=== PATIENT | female | born 1940 | race Caucasian/White ===

== ENCOUNTER 2025-03-04 12:53 | Inpatient (IN) | payer MEDICARE, OTHER, SELFPAY ==
[2025-03-04] VITALS (13 sets, daily range): BP systolic 98–131; BP diastolic 53–82; BMI 22.5; BMI 22.8
--- NOTE | 2025-03-04 09:55 | W.ICD.CONTRA ---
Post ICD/KETTLEMAN-D
-
History of GA?: No
LV Function
Left ventricular function study result?: Ejection Fraction </= 35%
ACEI/ARB/ARNI
Patient already on ACEI/ARB/ARNI: Yes
Beta-Yadira
Patient already on Beta Yadira: Yes
[2025-03-04] MEDS: VANCOCIN 200 IV (13:02)
--- NOTE | 2025-03-04 13:59 | ITS.CL.ICD ---
Natural Developer - ICD
Implantable Cardioverter Defibrillator
Procedure Report:
Primary Physician: Mariam Siegel MD
Primary Police Surgeon: Sohan Hernandez MD
Procedure Date: 03/04/2025
Procedure:
1: Implantation of TECHNICAL ASSISTANT-D utilizing LBBAP pacing lead for conduction system pacing
2: Subclavian venography
Indication/Diagnosis:
1. LBBB with baseline QRS > 120 msec (QRS >150 on ECG at procedure start)
2. CHF - NYHA class II-III
3. LVEF < 35% despite maximally tolerated GDMT > 90 days
HISTORY: Please see office H&P.
After informed consent was obtained, the patient was brought to the EP laboratory in a postabsorptive, nonsedated state. Peripheral IV access was established. Prophylactic antibiotics were administered prior to incision. Continuous ECG, blood
pressure, and pulse oximetry were initiated. Cardioversion patch electrodes were placed on the patient's chest and back. A grounding patch was applied to the skin. Sedation was administered by anesthesia.
In order to define the extrathoracic portion of the subclavian vein and exclude significant venous obstruction or anomalous anatomy, subclavian venography was performed prior to the procedure. Using the patient's left peripheral IV, contrast was
injected and images were recorded. The left subclavian vein and SVC were found to be widely patent.
The left chest was prepared and draped in a sterile fashion. A 'time out' was called and confirmed. Local anesthesia was injected in the subcutaneous tissue in the infraclavicular area. An incision was made medial to the deltopectoral groove and
parallel to the clavicle. The subcutaneous tissue was dissected the level of the prepectoral fascia. A subcutaneous pocket was created. Under fluoroscopic guidance and with the assistance of the images from the venogram, three separate
venipunctures were made using micropuncture and modified Seldinger technique. These was performed in the extrathoracic portion of the subclavian vein. Guidewires were passed. Peel-away sheaths were placed, and were used to advance the leads into
the circulation.
Using fluoroscopic guidance, the leads were positioned. The RV lead was advanced to the RV outflow tract. Ventricular ectopy was recorded. Images were taken in STERLING and RUSSIAN views to ensure appropriate lead placement. The lead tip was subsequently
positioned in the RV apex. Adequate sensing and pacing parameters were found, and no diaphragmatic stimulation was seen with high-output pacing.
Fluoroscopy was used to determine likely anatomic site for left bundle branch pacing. The GEOCOMtmstronic C315 sheath was used to deliver the Medtronic 3830 Selectsecure pacing lead with the helix exposed just exposed from the sheath tip during continuous
monitoring when pacemapping the septum during gentle clockwise rotation to obtain a paced QRS morphology of a W pattern in lead V1. Once the suspected optimal site was identified, lead deployment was performed with several rapid rotations as paced
QRS morphology was intermittently monitored until a paced QRS complex in lead V1 demonstrated development of an R wave (qR or rSR). Unipolar pacing impedance dropped by approximately 100-200 ohms suggesting it had reached the left ventricular
subendocardial. Stable VEgm injury current is present throughout lead position. Final unipolar pacing impedance is 900 Ohms. Unipolar pacing threshold is stable at 1.5 V @ 0.4 ms. The patient had pre-existing left bundle branch block at baseline.
Final measurements were obtained and the C315 sheath was slit under fluoroscopy ensuring lead position and stability.
Next, the right atrial lead was positioned in the right atrial appendage. Adequate sensing and pacing parameters were found, and no diaphragmatic stimulation was seen with high-output pacing. All sheaths were split, and the leads were secured to
the fascia with Ethibond ties.
During testing, the 3830 lead threshold began to increase. Out of concern for lead migration and stability, Ethibond ties were removed and the it was carefully counter-clockwise rotated under fluoroscopy and removed from circulation. Access was
obtained once more under fluoroscopic guidance and with the assistance of the images from the venogram, a venipuncture was made using micropuncture and modified Seldinger technique. This was performed in the extrathoracic portion of the subclavian
vein and guidewire was passed. Peel-away sheath was placed. Once more, fluoroscopy was used to determine likely anatomic site for left bundle branch pacing. The GEOCOMtmstronic C315 sheath was used to deliver the Medtronic 3830 Selectsecure pacing lead
with the helix exposed just exposed from the sheath tip during continuous monitoring when pacemapping the septum during gentle clockwise rotation to obtain a paced QRS morphology of a W pattern in lead V1. Once the suspected optimal site was
identified, lead deployment was performed with several rapid rotations as paced QRS morphology was intermittently monitored until a paced QRS complex in lead V1 demonstrated development of an R wave (qR or rSR). Unipolar pacing impedance dropped by
approximately 100-200 ohms suggesting it had reached the left ventricular subendocardial. Stable VEgm injury current is present throughout lead position and at end of case. Final unipolar pacing impedance is 950 Ohms. Unipolar pacing threshold is
stable at 0.75 V @ 0.4 ms. The patient had pre-existing left bundle branch block at baseline. Final conduction system paced QRS complex duration is 124 ms (improved from 154 at case start), LVAT is 78 ms, and peak V5 -> peak V1 timing is 49 ms. The
C315 sheath was slit under fluoroscopy ensuring lead position and stability. The 3830 lead was sutured into place with Ethibond ties.
The pocket was flushed with antibiotic solution and hemostasis was assured. Floseal was applied. The generator was connected to the leads and placed inside the pocket and sutured in place. The wound was closed with 3 running layers of absorbable
suture, and steri-strips were applied. Defibrillator function testing was deferred.
Fluoroscopy was used to guide lead placement. Fluoroscopic exposure 16.9 min and 26.6 mGy; DAP 3.15.
Following the procedure, the patient was taken to the recovery area in stable condition.
IMPLANTS:
Device: Medtronic Model VOAP4P0, SN: [id number]
RA: Medtronic, Model 5076, SN: [id number]
RV ICD: Medtronic, Model 6935, SN: [id number]
RV LBBAP: Medtronic 3830, SN:[id number], Interventricular septum at LBB
DEVICE TESTING:
RA: Sensing 2.3 mV, Capture 1.0V @ 0.4 msec, Impedance 874 ohms
RV (ICD lead): Sensing 16.6 mV, Capture 0.75V @ 0.4 msec, Impedance 456 ohms
RV (LBBAP lead): Sensing -- mV, Capture 0.5V @ 0.4 msec, Impedance 779 ohms
FINAL PROGRAMMING
Bradley Parameters: DDDR with 60 to 130 ppm; sensed AV delay 40 ms to ensure SEARCH ENGINE OPTIMIZATION CONSULTANT with LBBAP lead for ventricular resynchronization
Tachy Parameters: Monitor 150-18, VF >188 iATP with shock
COMPLICATIONS:
There were no complications.
CONCLUSIONS:
1: Successful implantation of TECHNICAL ASSISTANT-D utilizing LBBAP pacing lead for conduction system pacing for ventricular resynchronization
RECOMMENDATIONS:
- Admission
� Chest x-ray this evening, [facility] in the morning
� IV antibiotics while admitted.
� Monitor on telemetry
� Resume home medications as indicated
� Plan for resuming oral anticoagulation on 03/07/2025
� Pressure dressing to be removed in AM, aquacell to remain until wound check
- Follow-up to be arranged in our office in 7-10 days postdischarge for incision check
Toni Pappas DO, [facility], [facility]
Clinical Cardiac Publicist
Copy to: Mariam Siegel MD; Sohan Hernandez MD
--- NOTE | 2025-03-04 16:54 | CM ---
spoke to pt in room, she is prev indep, lives alone in a 1 story home with no steps to enter. she denies any dme's or dc planning needs. plan is for dc to home when medically stable.
[2025-03-04] MEDS: LASIX 40 MG PO (20:36)
--- NOTE | 2025-03-04 21:26 | PTCARENOTE ---
Received pt at change of shift. resting comfortably in bed with family at bedside. V-paced 70's on tele. BP 98/53, 100/57. pt due for PM doses of Entresto and Lasix. Discussed plan of care with Dr. Candace Cerna. Per MD, hold Entresto and give Lasix.
See MAR. reviewed plan of care with pt and verbalized understanding. Pt ambulating in room. Denies dizziness. Left chest site intact no swelling noted. Educated pt to inform Rn with any changes.
[2025-03-04] MEDS: LIPITOR 10 MG PO (22:08)
[2025-03-04] MEDS: MELATONIN 5 MG PO (22:51)
[2025-03-04] MEDS: AZACTAM 2000 MG IV (23:29)
[2025-03-05 04:51] VITALS: BP 87/51
[2025-03-05 04:52] VITALS: BP 92/57
[2025-03-05 05:00] VITALS: BMI 22.8
[2025-03-05 05:18] LABS: Hematocrit 33.5 % (37.0-47.0); Hemoglobin 11.2 g/dL (12.0-16.0); Mean Corp Hgb Conc. 33.4 g/dL (33.0-37.0); Mean Corpuscular Hgb 29.6 pg (27.0-31.0); Mean Corpuscular Volume 88.6 fL (81.0-99.0); Mean Platelet Volume 8.8 fL (7.4-10.4); Platelet Count 223 10^3/uL (130-400); Red Blood Cell Count 3.78 10^6/uL (4.20-5.40); Red Cell Dist. Width 17.6 % (11.5-14.5)
[2025-03-05 05:41] LABS: Blood Urea Nitrogen 22 mg/dl (7-17); Calcium 8.7 mg/dl (8.4-10.2); Carbon Dioxide 33 mmol/L (22-30); Chloride 91 mmol/L (98-107); Estimated Creatinine Clearance 34 ml/min; Glucose 101 mg/dl (70-99); Magnesium 1.8 mg/dl (1.6-2.3); Potassium 3.8 mmol/L (3.5-5.1); Sodium 132 mmol/L (135-145); eGFR > 60.00
--- NOTE | 2025-03-05 05:58 | PTCARENOTE ---
[facility] completed per order.
--- NOTE | 2025-03-05 07:36 | W.PN.CARDCBS ---
Addendum entered and electronically signed by Fermin Cerna MD 03/05/25 10:19:
84-year-old woman with nonischemic cardiomyopathy followed by Dr. Hernandez, underlying left bundle branch block and HFrEF, status post ICD 03/04/2025
No physical complaints. She has not happy with the seafood manager.
PMH: As above, plus functionally bicuspid aortic valve and mild aortic stenosis, severe TR, mild to moderate MR, left bundle branch block, nonischemic cardiomyopathy EF 30-35%, hypertension, paroxysmal A-fib on Eliquis, hyperlipidemia, GERD,
restless legs, history of breast cancer with aortic stenosis, PAF, hypertension
Meds: Reviewed
110/76, pulse 72, afebrile, sats 94%, intake and output -0.9 L, weight is 54.7 kg, no acute distress, Aquagel dressing intact, no hematoma, rales in bases bilaterally, regular rate and rhythm, AAS murmur, no edema, JVD probably okay
Hemoglobin 11.2, white count 8, platelets 223, sodium 132, potassium is 3.8, BUN and creatinine are 22 and 0.9
EKG sinus rhythm with ventricular pacing
Impression:
Status post TACK MAKER-D 03/04/2025
Other diagnoses as listed below
Plan:
Agree with findings, assessment and plan as documented below.
She appears relatively comfortable but has rales in the bases. To my eye her chest x-ray may show mild vascular congestion. Will give furosemide 40 mg IV x 1 prior to discharge and continue furosemide 40 twice daily. I gave additional potassium.
Blood pressure is relatively low so we will hold Entresto until Friday.
Okay for discharge from my standpoint. Telemetry is satisfactory, EKG is satisfactory. Labs are satisfactory.
She has follow-up arrangements in place.
Original Note:
Today's Communication / Plan
-
Doing well post ICD implant
Continue to hold Eliquis until 03/07/2025
Stable for discharge from cardiac standpoint
Outpatient cardiology follow-up has been arranged
Impression / Plan
-
Primary Physician: Mariam Siegel MD
Primary Oleomargarine Maker: Sohan Hernandez MD
Impression:
Elective admission 03/04/2025 for ICD implant
Nonischemic cardiomyopathy
Left bundle branch block
Heart failure with reduced ejection fraction
Aortic stenosis
Hypertension
Paroxysmal atrial fibrillation
Chronic anticoagulation on Eliquis
Hyperlipidemia
GERD
Hiatal hernia
Restless leg syndrome
Hypothyroidism
Breast cancer with mastectomy
Echo� 10/18/2024: LVEF less than 20%, severe concentric LVH, grade 2 diastolic function, normal RV size and function, moderately dilated LA, normal RA, functionally bicuspid aortic valve with stenosis peak/mean 21/8.3; trace AI, moderate PI, mild to
moderate MR, severe TR, right V pressure elevated 54.5 mmHg; study done in sinus rhythm with bundle branch block10/22/2024: Global hypokinesis, EF 30 to 35%, restricted aortic valve heavily calcified functional bicuspid aortic valve peak/mean 20/8
mmHg
Dobutamine stress echo 12/08/2024: Resting EF 25%, increasing to 35% with low dose, 45% at peak dose dobutamine
Plan:
-History of nonischemic cardiomyopathy, left bundle branch block, heart failure with reduced ejection fraction who presented for elective admission 03/04/2025 implantation of Medtronic TACK MAKER-D utilizing LBBAP pacing lead for conduction system pacing on
03/04/2025
-Post implant EKG 03/05/2025 shows biventricular paced rhythm
-Post implant chest x-ray shows no acute cardiopulmonary abnormality
-ICD incision well-approximated, dressing clean dry intact, no evidence of hematoma
-Continue GDMT with metoprolol, Entresto, Jardiance, Aldactone
-Eliquis on hold to be resumed 03/07/2025 in a.m.
-Continue amiodarone for PAF
-Outpatient cardiology follow-up and incision check arranged
-Patient stable for discharge
HPI:
patient is a pleasant 84 year old female with a past medical history significant for chronic heart failure with reduced ejection fraction, at least moderate aortic stenosis (by dobutamine stress echo evaluation by primary engraver optical frames), left bundle
branch block, hypertension, hyperlipidemia, paroxysmal atrial fibrillation on Eliquis, remote history of syncope who presented as referral from her primary engraver optical frames, Dr. Sohan Hernandez for elective admission for implantation of TACK MAKER-D utilizing
LBBAP pacing lead for conduction system pacing on 03/04/2025
Progress Note - Oleomargarine Maker
Subjective
Date of Service: March 05, 2025
Patient seen and examined. Patient resting comfortably in bed. Denies chest pain, shortness of breath, dizziness, lightheadedness, edema orthopnea or PND
Objective
Labs:
03/05/25 05:03
03/05/25 05:03
Labs
Hgb 11.2 g/dL (12.0-16.0) L 03/05/25 05:03
Hct 33.5 % (37.0-47.0) L 03/05/25 05:03
Plt Count 223 10^3/uL (130-400) 03/05/25 05:03
Sodium 132 mmol/L (135-145) L 03/05/25 05:03
Potassium 3.8 mmol/L (3.5-5.1) 03/05/25 05:03
BUN 22 mg/dl (7-17) H 03/05/25 05:03
Creatinine 0.9 mg/dL (0.6-1.0) 03/05/25 05:03
Glucose 101 mg/dl (70-99) H 03/05/25 05:03
Vital Signs and I&O:
Vital Signs
Temp Pulse Resp BP Pulse Ox
98.3 F 71 16 92/57 94
03/05/25 04:55 03/05/25 05:15 03/05/25 04:55 03/05/25 04:52 03/05/25 04:55
Vital Signs
Temp Pulse Resp BP Pulse Ox
98.3 F 71 16 92/57 94
03/05/25 04:55 03/05/25 05:15 03/05/25 04:55 03/05/25 04:52 03/05/25 04:55
Intake & Output
03/03/25 03/04/25 03/05/25 03/06/25
06:59 06:59 06:59 06:59
Intake Total 250 / 250
Output Total 1175 / 1175
Balance -925 / -925
Physical Exam
Physical Exam
GEN: No distress, awake, Ox3
HEENT: supple, anicteric, mmm
LUNGS: CTA, no wheezes/rales
CV: Reg, S1/S2, 1/6 syst murmur
Chest: ICD incision with Aquacel dressing clean dry intact without hematoma
ABD: soft, BS+, NT/ND
EXT: No edema, clubbing or cyanosis
NEURO: Gross non-focal
SKIN: No rash, warm, dry, pink
[2025-03-05 08:04] VITALS: BP 93/58
[2025-03-05] MEDS: LASIX 40 MG PO (09:10)
[2025-03-05] MEDS: PACERONE 200 MG PO (09:10)
[2025-03-05] MEDS: FARXIGA 10 MG PO (09:10)
[2025-03-05 09:11] VITALS: BP 110/76
[2025-03-05] MEDS: ZOLOFT 25 MG PO (09:11)
[2025-03-05] MEDS: PROTONIX 40 MG PO (09:11)
[2025-03-05] MEDS: TOPROL XL 12.5 MG PO (09:11)
[2025-03-05] MEDS: LASIX 40 MG IV (10:24)
[2025-03-05] MEDS: KCL 40 MEQ PO (10:24)
[2025-03-05 11:13] VITALS: BP 97/64
--- NOTE | 2025-03-05 12:34 | PTCARENOTE ---
03/05/25 1200 D/C order written, IV lasix and PO Potassium was given to patient prior to discharge w/diuresis of 500ml. Pt and daughters instructe don care of L CW pacer site, restrictions, medications, activity level, follow up appointments. IV and
Telem pack removed. All questions and concerned answered. Support given.
== END 2025-03-05 12:36 | disposition home or self-care (01) | DRG 277 ==
LOC: IVU 12:53
PROVIDERS: Nurse Practitioner Adult Health; ADMITTING PHYSICIAN Internal Medicine Cardiovascular Disease; FAMILY PHYSICIAN Family Medicine
PROC: 02HK3KZ Insertion of Defibrillator Lead into Right Ventricle, Percutaneous Approach (ICD-10-PCS; 2025-03-04)
PROC: 0JH609Z Insertion of Cardiac Resynchronization Defibrillator Pulse Generator into Chest Subcutaneous Tissue and Fascia, Open Approach (ICD-10-PCS; 2025-03-04)
PROC: 02H63KZ Insertion of Defibrillator Lead into Right Atrium, Percutaneous Approach (ICD-10-PCS; 2025-03-04)
PROC: 02H43KZ Insertion of Defibrillator Lead into Coronary Vein, Percutaneous Approach (ICD-10-PCS; 2025-03-04)
DX: I11.0 Hypertensive heart disease with heart failure (principal); I42.8 Other cardiomyopathies; I44.7 Left bundle-branch block, unspecified; I49.3 Ventricular premature depolarization; I48.0 Paroxysmal atrial fibrillation; E78.5 Hyperlipidemia, unspecified; K21.9 Gastro-esophageal reflux disease without esophagitis; I35.0 Nonrheumatic aortic (valve) stenosis; K44.9 Diaphragmatic hernia without obstruction or gangrene; M19.90 Unspecified osteoarthritis, unspecified site; Z90.11 Acquired absence of right breast and nipple; Z79.01 Long term (current) use of anticoagulants; Z60.2 Problems related to living alone; I50.22 Chronic systolic (congestive) heart failure
CPT/HCPCS: 33249; 71045; 80048; 83735; 85027; 93005; C1769; C1777; C1882; C1887; C1892; C1898; Q9967